=== PATIENT | male | born 1960 | race African-American/Black ===

== ENCOUNTER 2022-02-28 18:26 | Emergency (ER) | payer MEDICAID ==
[~2022-02-28] VITALS: Ht 175.3 cm; Wt 63.0 kg
[~2022-02-28 18:26] MED LIST: HYDR-519 PO; METF-416 MT; NIFE30TA83 PO; QUET300T2 PO; TRAZ-252 PO
[2022-02-28 18:34] VITALS: BP 133/89
[2022-02-28] MEDS ORDERED: SODIUM CHLORIDE 0.9% 1,000 ML IV ONE (19:15)
[2022-02-28 20:36] LABS: BASOPHILS % 0.4 % (0.0-2.0); EOSINOPHILS % 0.7 % (0.0-5.0); HEMATOCRIT. 40.3 % (42.0-52.0); HEMOGLOBIN. 13.2 g/dL (14.0-18.0); LYMPHOCYTES % 20.2 % (20.0-50.0); MEAN CORPUSCULAR HEMOGLOBIN 33.3 pg (28.0-32.0); MEAN CORPUSCULAR VOLUME 101.3 fL (80.0-94.0); MEAN PLATELET VOLUME 7.5 fl (7.4-10.4); MONOCYTES % 9.5 % (2.0-8.0); NEUTROPHILS % 69.2 % (40.0-76.0); PLATELET 265 x1000/uL (130-400); RED BLOOD CELL COUNT 3.97 mill/uL (4.7-6.1); RED CELL DISTRIBUTION WIDTH 13.3 % (11.6-14.6)
[2022-02-28 20:42] LABS: CHLORIDE 102 mEq/L (98-107)
[2022-02-28] MEDS ORDERED: INSULIN REGULAR (HUMULIN R) 300UNITS/3ML VIAL IV ONE (21:00)
[2022-02-28] MEDS ORDERED: INSULIN REGULAR (HUMULIN R) 300UNITS/3ML VIAL IV NR (23:45)
== END 2022-03-01 03:00 | disposition home or self-care (01) ==
LOC: ER 18:26
DX: E11.65 Type 2 diabetes mellitus with hyperglycemia (principal); Z79.4 Long term (current) use of insulin; I10 Essential (primary) hypertension
CPT/HCPCS: 36415; 80053; 82962; 83036; 85025; 96361; 96374; 99283; J1815; J7030